=== PATIENT | female | born 1955 | race Caucasian/White ===

== ENCOUNTER 2017-11-17 06:30 | Day surgery (SDC) | payer OTHER ==
[2017-11-17] MEDS ORDERED: ACETAZOLAMIDE 250 MG PO ONE (06:39)
[2017-11-17] MEDS: PHENYLEPHRINE HCL 10% OPHTHAL SOL ONE ×2 (06:54→07:09)
[2017-11-17] MEDS: PROPARACAINE HCL 0.5% OPHTHALMIC SOL ONE ×3 (06:54→08:10)
[2017-11-17] MEDS: CYCLOPENTOLATE 1% SOL ONE ×2 (06:55→07:10)
[2017-11-17] MEDS: KETOROLAC 0.5% OPTH 60 DROP SOL ONE ×2 (06:55→07:10)
[2017-11-17 07:09] VITALS: RESP 16
[2017-11-17] MEDS ORDERED: FENTANYL 100MCG/2ML SOL ONE (07:43)
[2017-11-17] MEDS ORDERED: MIDAZOLAM 2 MG/2 ML SOL ONE (07:44)
[2017-11-17] MEDS ORDERED: TRIAMCINOLONE ACETONIDE 40 MG/ML SUS ONE (08:03)
[2017-11-17] MEDS ORDERED: LIDOCAINE HCL 1% MPF SOL ONE (08:03)
[2017-11-17] MEDS ORDERED: BSS 500 ML 500 ML IR ONE (08:03)
[2017-11-17] MEDS ORDERED: POVIDONE IODINE 5% SOL ONE (08:03)
[2017-11-17] MEDS ORDERED: TRIAMCINOLONE ACETONIDE 10 MG/ML VIAL ONE ×2 (08:04→08:05)
[2017-11-17] MEDS ORDERED: CEFUROXIME SODIUM/0.9% NACL/PF 10 MG/ML VIAL IO ONE (08:04)
[2017-11-17 08:38] VITALS: BP 121/73; PULSE 60; TEMP 97.7; O2SAT 96
== END 2017-11-17 08:55 | disposition home or self-care (01) | DRG 125 ==
LOC: SURG 06:30
PROVIDERS: ATTEND Ophthalmology
DX: H26.9 Unspecified cataract (principal)
CPT/HCPCS: J2250; J3010; A9270-GY; J0697; J2001; J3300

== ENCOUNTER 2018-05-24 07:33 | Day surgery (SDC) | payer OTHER, MEDICARE ==
[2018-05-24] MEDS ORDERED: PROPOFOL 500 MG/50 ML EMU IV ONE (07:41)
[2018-05-24 09:01] VITALS: BP 125/69; PULSE 55; RESP 20; TEMP 97.7; O2SAT 100
== END 2018-05-24 09:15 | disposition home or self-care (01) | DRG 951 ==
LOC: SURG 07:33
PROVIDERS: ATTEND Surgery
DX: Z12.11 Encounter for screening for malignant neoplasm of colon (principal); Z80.0 Family history of malignant neoplasm of digestive organs; D12.3 Benign neoplasm of transverse colon
CPT/HCPCS: 99001; J2704